=== PATIENT | male | born 1960 | race African-American/Black ===

== ENCOUNTER 2020-08-04 09:20 | Outpatient (CLI) | payer OTHER ==
--- NOTE | 2020-08-04 15:07 | MRI Report ---
PROCEDURE: Cervical Spine W/O INDICATIONS: RADICULOPATHY CERVICAL REGION TECHNIQUE: Noncontrast sagittal T1 spin echo and T2 fast spin echo, sagittal STIR, foraminal oblique sagittal T2 fast spin echo, and axial gradient echo or T2 fast spin echo through the cervical spine. COMPARISON: None. FINDINGS: Image quality: Excellent. Alignment and Curvature: There is normal bony alignment. Bone Marrow: Marrow demonstrates expected heterogeneity in its overall signal in the setting of mode rately severe to severe degenerative disc disease from C3 through C6 . Spinal Cord: Visualized spinal cord has normal size and signal. No cerebellar tonsillar herniation. Paraspinous Soft Tissues: No paravertebral masses. Prevertebral soft tissues are normal in thicknes s. C2-C3: Mild degenerative disc height reduction and desiccation but no spinal or foraminal stenosis. C3-C4: At this level the degenerative disc disease is moderately severe with disc height reduction, disc desiccation and a posterior transverse broad-based disc bulge. Mild anterior spinal stenosis is present, facet osteoarthritis produces mild foraminal stenosis that appears slightly greater on the right than the left. C4-C5: The degenerative disc disease is moderately severe with desiccation and disc height reduction . There is a posterior transverse disc bulge. This produces mild to moderate anterior spinal stenosis . Facet osteoarthritis also appears greater on the right than the left with mild to moderate right an d mild left foraminal stenosis. C5-C6: Moderate degenerative disc disease with disc height reduction, disc desiccation but only a mi nimal posterior broad-based transverse disc bulge. The facet osteoarthritis at this level is better o n the right than the left with moderate right and minimal left foraminal stenosis. C6-C7: Moderate degenerative disc disease, slightly greater on the right than the left. There is a s light posterior disc bulge on the right, but no significant spinal stenosis. Facet osteoarthritis as has been seen above is greater on the right than the left with mild to moderate symmetric foraminal C7-T1: Only minimal degenerative disc disease is present without spinal or foraminal stenosis. IMPRESSION: Multilevel degenerative disc disease is moderately severe to severe overall from C3 through C6-C7. Sp inal stenosis is best seen and is relatively weight mild at C3-4 and C4-5. Facet osteoarthritis is ge nerally greater on the right than the left with foraminal stenosis as discussed in detail by level in the body of the report above. Multilevel nerve root impingement likely is present, but generally gre ater on the right. A disc herniation is not found. Reviewed by: Juan Llanos MD on 08/04/2020 3:05 PM PDT Approved by: Juan Llanos MD on 08/04/2020 3:05 PM PDT Station ID: [id number]
== END 2020-08-04 09:21 | disposition home or self-care (01) ==
LOC: DI 09:20
PROVIDERS: ATTEND Family Medicine
DX: M50.11 Cervical disc disorder with radiculopathy, high cervical region (principal); M48.02 Spinal stenosis, cervical region; R20.2 Paresthesia of skin
CPT/HCPCS: 72141